=== PATIENT | male | born 1925 | race Caucasian/White ===

== ENCOUNTER 2016-10-03 18:08 | Emergency (ER) | payer MEDICARE ==
[2016-10-03 19:08] VITALS: O2SAT 100
--- NOTE | 2016-10-03 19:52 | RAD ---
EXAM DESCRIPTION: XR CHEST 1 VIEW CLINICAL HISTORY: 89-year-old male status post fall with pain, abrasion, on Coumadin. COMPARISON: None. TECHNIQUE: Single AP view of the chest was obtained portably. FINDINGS: The cardiac mediastinal silhouette is within normal limits. Heart size is normal. Median sternotomy wires. The lungs are clear without discrete focal opacity, pleural effusion or pneumothorax. The osseous structures are within normal limits. IMPRESSION: No acute cardiopulmonary abnormalities. Electronically signed by: Shyanne Heard MD 10/03/2016 19:51
--- NOTE | 2016-10-03 19:54 | RAD ---
EXAM DESCRIPTION: XR SHOULDER 2 OR MORE VIEWS CLINICAL HISTORY: 89-year-old male status post fall with shoulder pain, abrasion, coumadin COMPARISON: None. TECHNIQUE: Two views of the left shoulder were obtained in AP, internal, external rotation projections. FINDINGS: There is no fracture or dislocation. The joint spaces are preserved. No soft tissue abnormalities are seen. IMPRESSION: No acute radiographic abnormality. Electronically signed by: Shyanne Heard MD 10/03/2016 19:52
--- NOTE | 2016-10-03 20:03 | CT ---
EXAM DESCRIPTION: CT HEAD WITHOUT INTRAVENOUS CONTRAST CLINICAL HISTORY: Patient is on Coumadin. History of fall. COMPARISON: None. TECHNIQUE: CT of the head was performed without intravenous contrast . FINDINGS: There is no intracranial hemorrhage, midline shift, mass effect or acute focal infarct. Benign bilateral basal ganglia calcifications are seen An MRI examination is more sensitive than the current study in evaluation of early acute infarcts, if present or clinically suspected. There is good ventura/white matter differentiation. The ventricular system is normal. Visualized mastoid air cells are unremarkable. The paranasal sinuses are unremarkable. There is no visualization of calvarial or skull base fractures. IMPRESSION: There are no acute intracranial findings. Electronically signed by: Jose Enrique Navarrete MD 10/03/2016 20:01
--- NOTE | 2016-10-03 20:22 | ED.PDOC ---
History of Present Illness - General Chief Complaint: Trauma Stated Complaint: fall Time Seen by Provider: 10/03/16 19:14 Source: patient, family Exam Limitations: no limitations - History of Present Illness Initial Comments: the patient is an 89-year-old male presenting to the emergency room after having fallen in his workshop at home. This happened immediately prior to arrival. He simply tripped and fell and landed on his left shoulder. While trying to catch himself he brought his workbench down on top of him. He sustained multiple small abrasions to both sides of his face due to this. No loss of consciousness. He does have some mild dizziness but has not eaten any is a diabetic. His left shoulder is more sore than his right. Full range of motion is preserved. No obvious deformities. He does have a mild abrasion to his right scapula as well as to his sternum in the lower half. He has no lacerations that will require repair. He does take Coumadin. Wounds are hemostatic at this time. Timing/Duration: momentarily Severity: mild Improving Factors: nothing Worsening Factors: nothing Associated Symptoms: denies symptoms Allergies/Adverse Reactions: Allergies NO KNOWN ALLERGY Allergy (Unverified 11/27/12 03:41) Home Medications: Ambulatory Orders Acetaminophen [Tylenol] 500 mg PO PRN 10/03/16 Cyanocobalamin Inj [Vitamin B-12 Inj] 1,000 mcg IM MONTHLY 10/03/16 Digoxin 0.125 mg PO .5X/WEEK 10/03/16 Donepezil HCl [Aricept] 10 mg PO BEDTIME 10/03/16 Insulin Detemir [Levemir] 18 units SUBCU DAILY 10/03/16 Levothyroxine Sodium [Tirosint] 50 mcg PO DAILY 10/03/16 Lisinopril 2.5 mg PO DAILY 10/03/16 Potassium Chloride [K-Tab] 20 meq PO .,,,HYDE 10/03/16 Potassium Chloride [Micro-K] 30 meq PO .M,W,F 10/03/16 Tamsulosin [Flomax] 0.4 mg PO QD 10/03/16 Warfarin Sodium 7.5 mg PO .,,,,10/03/16 Warfarin Sodium [Coumadin] 10 mg PO .,10/03/16 Review of Systems - Review of Systems Constitutional: States: no symptoms reported EENTM: States: no symptoms reported Respiratory: States: no symptoms reported Cardiology: States: no symptoms reported Gastrointestinal/Abdominal: States: no symptoms reported Genitourinary: States: no symptoms reported Musculoskeletal: States: see HPI Skin: States: see HPI Neurological: States: no symptoms reported Endocrine: States: no symptoms reported All other Systems: No Change from Baseline Past Medical History (General) - Patient Medical History Hx Cardiac Disorders: Yes - Atrial fib Hx Diabetes: Yes Surgical History: coronary bypass surgery - Vaccination History Hx Tetanus, Diphtheria Vaccination: - unknown Hx Influenza Vaccination: Yes Hx Pneumococcal Vaccination: Yes - Social History Hx Tobacco Use: Yes Family Medical History - Family History Father Family History: Unknown Living Status: Unknown Physical Exam - Physical Exam General Appearance: Alert, Comfortable, No apparent distress Eye Exam: bilateral normal Ears, Nose, Throat: hearing grossly normal, normal ENT inspection, normal pharynx Neck: non-tender, full range of motion, supple Respiratory: chest non-tender, lungs clear, normal breath sounds, no respiratory distress, no accessory muscle use Cardiovascular/Chest: normal peripheral pulses, no edema, other - regular rate Peripheral Pulses: radial,right: 2+, radial,left: 2+ Gastrointestinal/Abdominal: non tender, soft Rectal Exam: deferred Back Exam: normal inspection, no CVA tenderness Extremity: normal range of motion, no pedal edema, no calf tenderness, normal capillary refill, other - again he does have some discomfort with moving both shoulders range of motion is preserved and he is neurovascularly intact distally. No obvious deformities. Neurologic: no motor/sensory deficits, alert, normal mood/affect, oriented x 3 Skin Exam: normal color - with the exception of the abrasions to the face, sternum and right scapula Comments: Vital Signs - 24 hr 10/03/16 10/03/16 19:02 20:09 Temperature 97.8 F Pulse Rate [ 66 57 L Left Brachial] Respiratory 20 20 Rate Blood Pressure 134/67 154/93 [Left Arm] O2 Sat by Pulse 100 100 Oximetry Progress - Progress Progress: 10/03/16 20:23 the patient is an 89-year-old male presenting after having fallen at home. No loss of consciousness and no concussion. He has minor abrasions to the face as well as the torso. These were cared for locally. He does appear to have a mild left shoulder strain. X-rays and CT scan are reassuring. ER warnings were given for any acute worsening. Motrin or Tylenol can be used for discomfort. He does need follow-up with his primary care doctor early next week otherwise. - Results/Orders Results/Orders: x-ray of the left shoulder, chest and CT scan of the head showed no evidence of acute injury. - EKG/XRAY/CT CT Ordered: Yes - 1914 Departure - Departure Clinical Impression: Left shoulder strain Qualifiers: Encounter type: initial encounter Qualifier Code: (S46.912A) Strain of unspecified muscle, fascia and tendon at shoulder and upper arm level, left arm , initial encounter Fall at home Qualifiers: Encounter type: initial encounter Qualifier Code: (W19.XXXA) Unspecified fall, initial encounter Disposition: Discharge to Home or Self Care Condition: Fair Departure Forms: ED Discharge - Pt. Copy, Patient Portal Self Enrollment Instructions: How to Prevent Falls Diet: diabetic diet Activity: increase activity as tolerated Referrals: Eligio Mcdonald MD [Primary Care Provider] - 1-2 Weeks Home Medications: Ambulatory Orders Acetaminophen [Tylenol] 500 mg PO PRN 10/03/16 Cyanocobalamin Inj [Vitamin B-12 Inj] 1,000 mcg IM MONTHLY 10/03/16 Digoxin 0.125 mg PO .5X/WEEK 10/03/16 Donepezil HCl [Aricept] 10 mg PO BEDTIME 10/03/16 Insulin Detemir [Levemir] 18 units SUBCU DAILY 10/03/16 Levothyroxine Sodium [Tirosint] 50 mcg PO DAILY 10/03/16 Lisinopril 2.5 mg PO DAILY 10/03/16 Potassium Chloride [K-Tab] 20 meq PO .,,,10/03/16 Potassium Chloride [Micro-K] 30 meq PO .,W,F 10/03/16 Tamsulosin [Flomax] 0.4 mg PO QD 10/03/16 Warfarin Sodium 7.5 mg PO .,,,,10/03/16 Warfarin Sodium [Coumadin] 10 mg PO .,10/03/16 Additional Instructions: the patient is an 89-year-old male presenting after having fallen at home. No loss of consciousness and no concussion. He has minor abrasions to the face as well as the torso. These were cared for locally. He does appear to have a mild left shoulder strain. X-rays and CT scan are reassuring. ER warnings were given for any acute worsening. Motrin or Tylenol can be used for discomfort. He does need follow-up with his primary care doctor early next week otherwise.
[2016-10-03] MEDS ORDERED: NEOMYCIN-BACITRACIN-POLYMYXIN 0.9 GM UD TOP ONE (20:23)
[2016-10-03 21:08] VITALS: BP 177/71; TEMP 97.4
== END 2016-10-03 20:50 | disposition home or self-care (01) ==
LOC: ER 18:08
DX: S46.912A Strain of unspecified muscle, fascia and tendon at shoulder and upper arm level, left arm, initial encounter (principal); R42 Dizziness and giddiness; I48.91 Unspecified atrial fibrillation; E11.9 Type 2 diabetes mellitus without complications; S00.81XA Abrasion of other part of head, initial encounter; Z95.1 Presence of aortocoronary bypass graft; Z79.01 Long term (current) use of anticoagulants; Z79.4 Long term (current) use of insulin; Z87.891 Personal history of nicotine dependence; W01.0XXA Fall on same level from slipping, tripping and stumbling without subsequent striking against object, initial encounter; Y92.008 Other place in unspecified non-institutional (private) residence as the place of occurrence of the external cause

== ENCOUNTER → 2016-10-31 | Outpatient (CLI) | payer MEDICARE | LOC: GMAB 10:53 | PROVIDERS: ATTEND Family Medicine | DX: E03.9 Hypothyroidism, unspecified (principal); Z12.5 Encounter for screening for malignant neoplasm of prostate | CPT/HCPCS: 84439; 84443; 84481; G0103 ==

== ENCOUNTER 2016-11-09 15:54 | Emergency (ER) | payer MEDICARE ==
--- NOTE | 2016-11-09 15:59 | ED.PDOC ---
History of Present Illness - General Stated Complaint: dizziness Time Seen by Provider: 11/09/16 15:58 Source: patient Exam Limitations: no limitations - History of Present Illness Initial Comments: Patient stated that after eating lunch today he went to sit on his sofa and rest but on standing up felt wobbly and feeling room is spinning /moving. So he went to take a nap for about 20 minutes and on waking up felt the same symptoms.No hearing loss,no weakness,no tinnitus ,no dysarthria. Timing/Duration: 1-3 hours Severity: moderate Improving Factors: rest Worsening Factors: movement Associated Symptoms: denies symptoms Allergies/Adverse Reactions: Allergies NO KNOWN ALLERGY Allergy (Unverified 11/27/12 03:41) Home Medications: Ambulatory Orders Acetaminophen [Tylenol] 500 mg PO PRN 10/03/16 Cyanocobalamin Inj [Vitamin B-12 Inj] 1,000 mcg IM MONTHLY 10/03/16 Digoxin 0.125 mg PO .5X/WEEK 10/03/16 Donepezil HCl [Aricept] 10 mg PO BEDTIME 10/03/16 Insulin Detemir [Levemir] 18 units SUBCU DAILY 10/03/16 Levothyroxine Sodium [Tirosint] 50 mcg PO DAILY 10/03/16 Lisinopril 2.5 mg PO DAILY 10/03/16 Potassium Chloride [K-Tab] 20 meq PO .,,SA,HYDE 10/03/16 Potassium Chloride [Micro-K] 30 meq PO .M,W,F 10/03/16 Tamsulosin [Flomax] 0.4 mg PO QD 10/03/16 Warfarin Sodium 7.5 mg PO .MON,WED, Fri10/03/16 Warfarin Sodium [Coumadin] 20 mg PO .FELYE,THUR, SAT, SUN 10/03/16 Meclizine HCl 50 mg PO Q6HRS PRN #60 chw 11/09/16 Review of Systems - Review of Systems Constitutional: States: no symptoms reported EENTM: States: no symptoms reported Respiratory: States: no symptoms reported Cardiology: States: no symptoms reported Gastrointestinal/Abdominal: States: no symptoms reported Genitourinary: States: no symptoms reported Musculoskeletal: States: no symptoms reported Skin: States: no symptoms reported Neurological: States: see HPI, other - dementia with short term memory loss Endocrine: States: no symptoms reported Hematologic/Lymphatic: States: no symptoms reported Past Medical History (General) - Patient Medical History Hx Cardiac Disorders: Yes - Atrial fib Hx Diabetes: Yes Surgical History: cholecystectomy - right, coronary bypass surgery, other Other Surgeries:: right carotid endarterctomy - Vaccination History Hx Tetanus, Diphtheria Vaccination: - unknown Hx Influenza Vaccination: Yes Hx Pneumococcal Vaccination: Yes - Social History Hx Tobacco Use: Yes - Activities of Daily Living Patient Lives Alone: No - Grooming Ability: Independent Eating (Feeding) Ability: Independent Toileting Ability: Independent Family Medical History - Family History Father Family History: Unknown Living Status: Unknown Hx Family Stroke: Yes - brain aneurysm Hx Family Cancer: Yes - breast Hx Family;Other: dementia -dad brother Physical Exam - Physical Exam General Appearance: Alert, No apparent distress Eye Exam: left other - decrease vision due old eye injury left eye Ears, Nose, Throat: hearing grossly normal, normal ENT inspection, normal pharynx Neck: non-tender, full range of motion, supple, normal inspection Respiratory: chest non-tender, lungs clear, normal breath sounds, no respiratory distress, no accessory muscle use Cardiovascular/Chest: normal peripheral pulses, regular rate, rhythm, no edema, no gallop, no JVD, no murmur Peripheral Pulses: radial,right: 2+, radial,left: 2+ Gastrointestinal/Abdominal: normal bowel sounds, non tender, soft, no organomegaly, no pulsatile mass Back Exam: normal inspection, no CVA tenderness, no vertebral tenderness Extremity: normal range of motion, non-tender, normal inspection, no pedal edema , no calf tenderness Neurologic: director of midwifery/staff midwife II-XII nml as tested, no motor/sensory deficits, alert, normal mood/affect, oriented x 3, other - speech fluent no facial asymmetry Skin Exam: normal color, warm/dry Lymphatic: no adenopathy Progress - Progress Progress: 11/09/16 18:51 Less dizziness talked about lab xrays an head ct to patient and - Results/Orders Results/Orders: 11/09/16 17:00 EKG STAT Laboratory Results WBC 5.8 K/mm3 (4.8-10.8) 11/09/16 15:59 RBC 4.43 M/mm3 (4.70-6.10) L 11/09/16 15:59 Hgb 13.0 gm/dL (14.0-18.0) L 11/09/16 15:59 Hct 40.4 % (42.0-52.0) L 11/09/16 15:59 MCV 91.1 fl (80.0-94.0) 11/09/16 15:59 MCH 29.3 pg (27.0-31.0) 11/09/16 15:59 MCHC 32.3 g/dL (33.0-37.0) L 11/09/16 15:59 RDW 13.7 % (11.5-14.5) 11/09/16 15:59 Plt Count 120 K/mm3 (130-400) L 11/09/16 15:59 MPV 8.3 fl (7.40-10.4) 11/09/16 15:59 Absolute Neuts (auto) 4.00 K/uL (1.8-6.8) 11/09/16 15:59 Absolute Lymphs (auto) 1.30 K/uL (1.0-3.4) 11/09/16 15:59 Absolute Monos (auto) 0.40 K/uL (0.2-0.8) 11/09/16 15:59 Absolute Eos (auto) 0.00 K/uL (0.0-0.4) 11/09/16 15:59 Absolute Basos (auto) 0.00 K/uL (0.0-0.1) 11/09/16 15:59 Neutrophils % 68.7 % (42.0-78.0) 11/09/16 15:59 Lymphocytes % 23.0 % (20.0-50.0) 11/09/16 15:59 Monocytes % 7.1 % (2.0-9.0) 11/09/16 15:59 Eosinophils % 0.7 % (1.0-5.0) L 11/09/16 15:59 Basophils % 0.5 % (0.0-2.0) 11/09/16 15:59 PT 34.6 SECONDS (9.4-12.5) H* 11/09/16 15:59 INR 3.100 11/09/16 15:59 Sodium 140 mmol/L (135-145) 11/09/16 15:59 Potassium 4.1 mmol/L (3.6-5.0) 11/09/16 15:59 Chloride 109 mmol/L (101-111) 11/09/16 15:59 Carbon Dioxide 26 mmol/L (21-31) 11/09/16 15:59 Anion Gap 9.1 (12-18) L 11/09/16 15:59 BUN 23 mg/dL (7-18) H 11/09/16 15:59 Creatinine 1.21 mg/dL (0.6-1.3) 11/09/16 15:59 BUN/Creatinine Ratio 19.0 (10-20) 11/09/16 15:59 Random Glucose 121 mg/dL (70-105) H 11/09/16 15:59 Serum Osmolality 284.3 mOsm/L (275-295) 11/09/16 15:59 Calcium 9.1 mg/dL (8.4-10.2) 11/09/16 15:59 Total Bilirubin 0.9 mg/dL (0.2-1.0) 11/09/16 15:59 AST 28 IU/L (10-42) 11/09/16 15:59 ALT 25 IU/L (10-60) 11/09/16 15:59 Alkaline Phosphatase 81 IU/L (42-121) 11/09/16 15:59 Creatine Kinase 89 IU/L (38-174) 11/09/16 15:59 CK-MB (CK-2) 3.1 ng/mL (0.0-4.4) 11/09/16 15:59 CK-MB (CK-2) % Not Reportable 11/09/16 15:59 Troponin I < 0.02 ng/mL (0.01-0.05) 11/09/16 15:59 B-Natriuretic Peptide 47.1 pg/ml (0-100) 11/09/16 15:59 Serum Total Protein 6.9 gm/dL (6.4-8.2) 11/09/16 15:59 Albumin 3.8 g/dl (3.2-5.5) 11/09/16 15:59 Globulin 3.1 gm/dL (2.3-3.5) 11/09/16 15:59 Albumin/Globulin Ratio 1.2 (1.1-1.9) 11/09/16 15:59 Urine Color Yellow (Yellow) 11/09/16 18:15 Urine Appearance Clear (Clear) 11/09/16 18:15 Urine pH 6.0 (4.5-7.8) 11/09/16 18:15 Ur Specific [place] 1.020 (1.005-1.030) 11/09/16 18:15 Urine Protein 30 mg/dL 11/09/16 18:15 Urine Glucose (UA) Negative mg/dL (Negative) 11/09/16 18:15 Urine Ketones Negative mg/dL (NEGATIVE) 11/09/16 18:15 Urine Blood Negative (Negative) 11/09/16 18:15 Urine Nitrite Negative 11/09/16 18:15 Urine Bilirubin Negative (NEGATIVE) 11/09/16 18:15 Urine Urobilinogen 0.2 mg/dL (0.2-1.0) 11/09/16 18:15 Ur Leukocyte Esterase Negative (Negative) 11/09/16 18:15 Urine RBC 0-1 /hpf 11/09/16 18:15 Urine WBC 0-1 /hpf 11/09/16 18:15 Ur Epithelial Cells 0-1 /hpf 11/09/16 18:15 Urine Bacteria 0 11/09/16 18:15 BP-standing 143/68 - EKG/XRAY/CT EKG: Fibrillation - atrial,heart rate-60 XRAY: chest - copd changes CT Ordered: Yes - Head w/o-no acute abnormality noted Departure - Departure Clinical Impression: History of chronic atrial fibrillation, correction current use of anticoagulant therapy Vertigo, labyrinthine Qualifiers: Laterality: unspecified laterality Qualifier Code: (H81.399) Other peripheral vertigo, unspecified ear Time of Disposition: 18:55 Disposition: Discharge to Home or Self Care Condition: Good Instructions: DI for Vertigo Referrals: Eligio Mcdonald MD [Primary Care Provider] - 1-2 Weeks Prescriptions: Meclizine HCl 50 mg PO Q6HRS PRN #60 chw PRN Reason: Dizziness Home Medications: Ambulatory Orders Acetaminophen [Tylenol] 500 mg PO PRN 10/03/16 Cyanocobalamin Inj [Vitamin B-12 Inj] 1,000 mcg IM MONTHLY 10/03/16 Digoxin 0.125 mg PO .5X/WEEK 10/03/16 Donepezil HCl [Aricept] 10 mg PO BEDTIME 10/03/16 Insulin Detemir [Levemir] 18 units SUBCU DAILY 10/03/16 Levothyroxine Sodium [Tirosint] 50 mcg PO DAILY 10/03/16 Lisinopril 2.5 mg PO DAILY 10/03/16 Potassium Chloride [K-Tab] 20 meq PO .TU,TH,SA,HYDE 10/03/16 Potassium Chloride [Micro-K] 30 meq PO .M,W,F 10/03/16 Tamsulosin [Flomax] 0.4 mg PO QD 10/03/16 Warfarin Sodium 7.5 mg PO .MON,FRI, Fri10/03/16 Warfarin Sodium [Coumadin] 20 mg PO .NEO [place]ACON, SAT, SUN 10/03/16 Meclizine HCl 50 mg PO Q6HRS PRN #60 chw 11/09/16 Additional Instructions: RETURN TO EMERGENCY ROOM NEEDED
--- NOTE | 2016-11-09 16:34 | RAD ---
EXAM DESCRIPTION: Chest,1 View CLINICAL HISTORY: 89 years Male pain COMPARISON: 10/03/2016. FINDINGS: The cardiomediastinal silhouette appears unremarkable.Changes from previous sternotomy.The lungs appear hyperexpanded.No consolidating infiltrates or pleural effusions.No pneumothorax. IMPRESSION: No acute abnormality is identified. COPD. Electronically signed by: Tay Armas MD 11/09/2016 4:33 PM FLOORING SALESPERSON
[2016-11-09 19:13] VITALS: BP 143/60; TEMP 97.1; O2SAT 99
--- NOTE | 2016-11-25 00:01 | RAD ---
EXAM DESCRIPTION: Chest,1 View CLINICAL HISTORY: 89 years Male pain COMPARISON: 10/03/2016. FINDINGS: The cardiomediastinal silhouette appears unremarkable.Changes from previous sternotomy.The lungs appear hyperexpanded.No consolidating infiltrates or pleural effusions.No pneumothorax. IMPRESSION: No acute abnormality is identified. COPD. Electronically signed by: Tay Armas MD 11/09/2016 4:33 PM REPAIR [employer]MATURE WINDER
--- NOTE | 2016-11-25 00:01 | CT ---
PROCEDURE: Head CLINICAL HISTORY: dizziness INDICATION: Same as above Comparison: 10/03/2016 TECHNIQUE: CT of the head was done without intravenous contrast was done in the orthogonal planes. Total DLP: 773.97 mGy*cm. FINDINGS: There is no intracranial hemorrhage, midline shift mass effect or acute focal infarct. Benign bilateral basal ganglia calcifications are seen. If clinical concern exists regarding an acute ischemic/vascular pathology being responsible for patient's symptomatology, an MRI of the brain is more sensitive than the current study, in ruling out such a possibility. There is good ventura/white matter differentiation. The ventricular system is normal. The mastoid air cells are unremarkable . The paranasal sinuses are unremarkable . There is no visualization of acute fractures involving the calvarium or the skull base. IMPRESSION: There is no acute intracranial abnormality. Place of interpretation: [facility]. Electronically signed by: Jose Enrique Navarrete MD 11/09/2016 4:18 PM SPORTS EQUIPMENT REPAIRER
== END 2016-11-09 19:15 | disposition home or self-care (01) ==
LOC: ER 15:54
DX: H81.399 Other peripheral vertigo, unspecified ear (principal); I48.91 Unspecified atrial fibrillation; Z95.1 Presence of aortocoronary bypass graft; Z79.01 Long term (current) use of anticoagulants; Z79.4 Long term (current) use of insulin

== ENCOUNTER → 2017-04-08 | Outpatient (CLI) | payer MEDICARE | END | disposition home or self-care (01) | LOC: GMAB 10:42 | PROVIDERS: ATTEND Family Medicine | DX: E03.9 Hypothyroidism, unspecified (principal); E11.9 Type 2 diabetes mellitus without complications; I10 Essential (primary) hypertension ==

== ENCOUNTER → 2017-10-28 | Outpatient (CLI) | payer MEDICARE | LOC: GMAB 18:02 | PROVIDERS: ATTEND Family Medicine | DX: M25.532 Pain in left wrist (principal); I48.91 Unspecified atrial fibrillation ==

== ENCOUNTER → 2017-11-05 | Outpatient (CLI) | payer MEDICARE | LOC: GMAB 11:32 | PROVIDERS: ATTEND Family Medicine | DX: E03.9 Hypothyroidism, unspecified (principal); E55.9 Vitamin D deficiency, unspecified; Z12.5 Encounter for screening for malignant neoplasm of prostate | CPT/HCPCS: 84439; 84443; 84481; G0103 ==